=== PATIENT | male | born 1955 | race Caucasian/White ===

== ENCOUNTER 2016-12-01 13:23 | Emergency (ER) | payer SELFPAY ==
[~2016-12-01] VITALS: Ht 172.7 cm; Wt 84.0 kg
[~2016-12-01 13:23] MED LIST: GABA100C4 PO; MELO7.5T PO; METH750T2 PO; PRAV40TA PO; PROT40TA PO; ULTR50TA PO; VIAG50TA PO
[2016-12-01 13:24] VITALS: BP 155/90; PULSE 92; RESP 20; TEMP 98.7; O2SAT 96
--- NOTE | 2016-12-01 14:25 | PD ---
Physical Exam Date Seen by Provider: December 01, 2016 Time Seen by Provider: 14:22 Narrative 61 y/o male with complaints of right lower leg and foot pain and swelling worsening over the past 4 days. No fever or other symptoms of cellulitis. Hx. Varicose Veins. Not Diabetic. pain 8/10. V/S Stable Patient awaiting Bed Placement. Data Data Last Documented VS Vital Signs Date Time Temp Pulse Resp B/P Pulse Ox O2 Delivery O2 Flow Rate FiO2 12/01/16 13:24 98.7 92 20 155/90 96 Room Air [facility] Medical Record Reviewed: Yes Supervised Visit with LIONEL: Yes Condition: Stable Ramy Arnold December 01, 2016 14:25
--- NOTE | 2016-12-01 19:27 | PD ---
HPI Chief Complaint: Pain: Acute or Chronic Time Seen by Provider: 19:26 Travel History International Travel<30 days: No Contact w/Intl Traveler<30days: No Traveled to known affect area: No PFSH Past Medical History Arthritis: No Asthma: No Autoimmune Disease: No Blood Disorders: No Anxiety: No Depression: No Heart Rhythm Problems: No Cancer: No Cardiovascular Problems: No High Cholesterol: No Chemotherapy: No Chest Pain: No Congestive Heart Failure: No COPD: No Cerebrovascular Accident: No Diabetes: No Diminished Hearing: No Endocrine: No GERD: No Glaucoma: No Genitourinary: No Headaches: No Hepatitis: No Hiatal Hernia: No Hypertension: No Immune Disorder: No Inguinal Hernia: Yes Kidney Stones: No Musculoskeletal: Yes Neurologic: No Psychiatric: No Reproductive: No Respiratory: Yes Migraines: No Myocardial Infarction: No Radiation Therapy: No Renal Failure: No Seizures: No Sickle Cell Disease: No Thyroid Disease: No Ulcer: Yes (SINCE 19YRS OF AGE) Past Surgical History Abdominal Surgery: No AICD: No Appendectomy: No Arteriovenous Shunt: No Cardiac Surgery: No Cholecystectomy: No Ear Surgery: No Endocrine Surgery: No Eye Surgery: No Genitourinary Surgery: No Gynecologic Surgery: No Insulin Pump: No Joint Replacement: No Oral Surgery: No Pacemaker: No Thoracic Surgery: No Other Surgery: Yes Social History Alcohol Use: No Tobacco Use: No Substance Use: No Allergies-Medications (Allergen,Severity, Reaction): Coded Allergies: Ibuprofen (Verified Allergy, Unknown, ulcer problems, 12/01/16) Pt states that Ibuprofen "messes" up his ulcer. Reported Meds & Prescriptions Reported Meds & Active Scripts Active Robaxin (Methocarbamol) 750 Mg Tab 750 Mg PO QID Ultram (Tramadol HCl) 50 Mg Tab 50-100 Mg PO Q8 PRN Protonix (Pantoprazole Sodium) 40 Mg Tab 40 Mg PO DAILY Gabapentin 100 Mg Cap 200 Mg PO BID Viagra (Sildenafil Citrate) 50 Mg Tab 50 Mg PO DAILY PRN Mobic (Meloxicam) 7.5 Mg Tab 7.5 Mg PO DAILY Pravachol 40 Mg Tab 40 Mg PO HS Data Data Last Documented VS Vital Signs Date Time Temp Pulse Resp B/P Pulse Ox O2 Delivery O2 Flow Rate FiO2 12/01/16 13:24 98.7 92 20 155/90 96 Room Air MDM Condition: Stable Micki Casanova MD December 01, 2016 19:26
[2016-12-02] MEDS ORDERED: CLIN1CAP5 PO (11:23)
== END 2016-12-01 19:25 | disposition left against medical advice (07) ==
LOC: NEPD 13:23
DX: M79.604 Pain in right leg (principal)
CPT/HCPCS: 99282

== ENCOUNTER 2016-12-02 08:08 | Emergency (ER) | payer SELFPAY ==
[~2016-12-02] VITALS: Ht 172.7 cm; Wt 85.0 kg
[2016-12-02 08:13] VITALS: BP 147/90; PULSE 91; RESP 18; TEMP 98.7; O2SAT 95
--- NOTE | 2016-12-02 09:19 | PD ---
HPI Chief Complaint: Edema Time Seen by Provider: 09:06 Travel History International Travel<30 days: No Contact w/Intl Traveler<30days: No Traveled to known affect area: No History of Present Illness HPI 61-year-old male complains of right leg pain and swelling and redness. Patient states that he started having redness swelling tenderness about 5 days ago. Patient states that swelling got better since yesterday however the redness and the pain persists on the right lower leg. Patient denies any injury. Patient denies any chest pain or shortness of breath. Patient denies history of DVT or PE. PFSH Past Medical History Arthritis: No Asthma: No Autoimmune Disease: No Blood Disorders: No Anxiety: No Depression: No Heart Rhythm Problems: No Cancer: No Cardiovascular Problems: No High Cholesterol: No Chemotherapy: No Chest Pain: No Congestive Heart Failure: No COPD: No Cerebrovascular Accident: No Diabetes: No Diminished Hearing: No Endocrine: No GERD: No Glaucoma: No Genitourinary: No Headaches: No Hepatitis: No Hiatal Hernia: No Hypertension: No Immune Disorder: No Inguinal Hernia: Yes Kidney Stones: No Musculoskeletal: Yes Neurologic: No Psychiatric: No Reproductive: No Respiratory: Yes Migraines: No Myocardial Infarction: No Radiation Therapy: No Renal Failure: No Seizures: No Sickle Cell Disease: No Thyroid Disease: No Ulcer: Yes (SINCE 19YRS OF AGE) Past Surgical History Abdominal Surgery: Yes (HERNIA REPAIR ) AICD: No Appendectomy: No Arteriovenous Shunt: No Cardiac Surgery: No Cholecystectomy: No Ear Surgery: No Endocrine Surgery: No Eye Surgery: No Genitourinary Surgery: No Gynecologic Surgery: No Insulin Pump: No Joint Replacement: No Oral Surgery: No Pacemaker: No Thoracic Surgery: No Other Surgery: Yes Social History Alcohol Use: No Tobacco Use: No Substance Use: No Allergies-Medications (Allergen,Severity, Reaction): Coded Allergies: Ibuprofen (Verified Allergy, Unknown, ulcer problems, 12/02/16) Pt states that Ibuprofen "messes" up his ulcer. Reported Meds & Prescriptions Reported Meds & Active Scripts Active Review of Systems General / Constitutional: No: Fever Eyes: No: Visual changes HENT: No: Headaches Cardiovascular: No: Chest Pain or Discomfort Respiratory: No: Shortness of Breath Gastrointestinal: No: Abdominal Pain Genitourinary: No: Dysuria Musculoskeletal: No: Pain Skin: No Rash Neurologic: No: Weakness Psychiatric: No: Depression Endocrine: No: Polydipsia Hematologic/Lymphatic: No: Easy Bruising Physical Exam Narrative GENERAL: Well-nourished, well-developed patient. SKIN: Focused skin assessment warm/dry. HEAD: Normocephalic. EYES: No scleral icterus. No injection or drainage. NECK: Supple, trachea midline. No JVD or lymphadenopathy. CARDIOVASCULAR: Regular rate and rhythm without murmurs, gallops, or rubs. RESPIRATORY: Breath sounds equal bilaterally. No accessory muscle use. GASTROINTESTINAL: Abdomen soft, non-tender, nondistended. MUSCULOSKELETAL: No cyanosis, or edema. BACK: Nontender without obvious deformity. No CVA tenderness. Patient has an area of redness tenderness pretibial area of the right lower leg. No induration noted. No calf tenderness. Negative Homans sign. Data Data Last Documented VS Vital Signs Date Time Temp Pulse Resp B/P Pulse Ox O2 Delivery O2 Flow Rate FiO2 12/02/16 08:13 98.7 91 18 147/90 95 Room Air Orders Complete Blood Count With Diff (12/02/16 09:07) Basic Metabolic Panel (Bmp) (12/02/16 09:07) Prothrombin Time / Inr (Pt) (12/02/16 09:07) Basic Metabolic Panel (Bmp) (12/02/16 09:13) Act Partial Throm Time (Ptt) (12/02/16 09:13) Iv Access Insert/Monitor (12/02/16 09:13) Us Leg Venous Doppler (12/02/16 09:15) Labs Laboratory Tests Test 12/02/16 09:00 White Blood Count 6.7 TH/MM3 Red Blood Count 4.42 MIL/MM3 Hemoglobin 14.0 GM/DL Hematocrit 42.4 % Mean Corpuscular Volume 95.8 FL Mean Corpuscular Hemoglobin 31.7 PG Mean Corpuscular Hemoglobin 33.1 % Concent Red Cell Distribution Width 13.4 % Platelet Count 239 TH/MM3 Mean Platelet Volume 8.1 FL Neutrophils (%) (Auto) 59.0 % Lymphocytes (%) (Auto) 24.4 % Monocytes (%) (Auto) 9.5 % Eosinophils (%) (Auto) 6.0 % Basophils (%) (Auto) 1.1 % Neutrophils # (Auto) 4.0 TH/MM3 Lymphocytes # (Auto) 1.6 TH/MM3 Monocytes # (Auto) 0.6 TH/MM3 Eosinophils # (Auto) 0.4 TH/MM3 Basophils # (Auto) 0.1 TH/MM3 CBC Comment DIFF FINAL Differential Comment Prothrombin Time 12.0 SEC Prothromb Time International 1.1 RATIO Ratio Sodium Level 138 MEQ/L Potassium Level 4.4 MEQ/L Chloride Level 102 MEQ/L Carbon Dioxide Level 30.1 MEQ/L Anion Gap 6 MEQ/L Blood Urea Nitrogen 13 MG/DL Creatinine 1.08 MG/DL Estimat Glomerular Filtration 70 ML/MIN Rate Random Glucose 102 MG/DL Calcium Level 8.7 MG/DL [facility] Medical Decision Making Medical Screen Exam Complete: Yes Emergency Medical Condition: Yes Interpretation(s) Last Impressions Lower Extremity Ultrasound 12/02/16 0915 Signed Impressions: Service Date/Time: Friday, December 02, 2016 09:47 - CONCLUSION: No deep venous thrombosis in the right leg. Chandler Franklin MD 11:20 AM. CBC within normal limit. BMP within normal limit. Differential Diagnosis Differential diagnosis including superficial phlebitis, cellulitis, DVT. Narrative Course 61-year-old male with redness and tenderness pretibial area right lower leg. Diagnosis Primary Impression: Cellulitis Qualified Code: L03.115 - Cellulitis of right lower extremity Patient Instructions: General Instructions Additional Instructions: Take medications as directed. Follow-up with personal physician. Return if persistent problem or worse. Med/Other Pt SpecificInfo: Prescription(s) given Scripts Clindamycin 150 Mg Cap2 Tab PO Q6H #80 CAP Prov:Canelo Singleton MD 12/02/16 Disposition: 01 DISCHARGE HOME Condition: Stable Canelo Singleton MD December 02, 2016 09:19
[2016-12-02 09:22] LABS: BASOPHIL # 0.1 TH/MM3 (0-0.2); BASOPHIL % 1.1 % (0.0-2.0); EOSINOPHIL # 0.4 TH/MM3 (0-0.4); HEMATOCRIT 42.4 % (39.0-51.0); HEMO FLAGS DIFF FINAL; LYMPH % 24.4 % (9.0-44.0); LYMPHOCYTE # 1.6 TH/MM3 (1.0-4.8); MEAN CELL VOLUME 95.8 FL (80.0-100.0); MEAN CORPUSCULAR HEMOGLOBIN 31.7 PG (27.0-34.0); MEAN CORPUSCULAR HGB CONC 33.1 % (32.0-36.0); MONO % 9.5 % (0.0-8.0); PLATELET COUNT 239 TH/MM3 (150-450); RED BLOOD COUNT 4.42 MIL/MM3 (4.50-5.90); RED CELL DISTRIBUTION WIDTH 13.4 % (11.6-17.2); WHITE BLOOD COUNT 6.7 TH/MM3 (4.0-11.0)
[2016-12-02 09:31] LABS: INTERNATIONAL NORMALIZED RATIO 1.1 RATIO
[2016-12-02 09:40] LABS: BICARBONATE 30.1 MEQ/L (21.0-32.0); POTASSIUM 4.4 MEQ/L (3.5-5.1)
--- NOTE | 2016-12-02 10:11 | RADRPT ---
EXAM DATE/TIME: 12/02/2016 09:47 [place] COMPARISON: No previous studies available for comparison. INDICATIONS : Right leg pain. MEDICAL HISTORY : Ulcers. Sleep apnea. TB. Inguinal hernia. SURGICAL HISTORY : Inguinal hernia repair. ENCOUNTER: Initial ACUITY: 2 months PAIN SCORE: 3/10 LOCATION: Right leg. TECHNIQUE: Venous ultrasound of the leg was performed from the inguinal ligament to the proximal calf. Real-barbie e, color Doppler and spectral tracing, compression and augmentation techniques were used. FINDINGS: There is normal compressibility of the deep venous system from the inguinal region to the proximal ca lf. No echogenic clot is seen in the lumen of the common femoral, femoral, popliteal, and posterior tibial veins. There is a normal response of the venous system to proximal and distal augmentation an d respiration. CONCLUSION: No deep venous thrombosis in the right leg. Chandler Franklin MD on December 02, 2016 at 10:09 Board Certified Radiologist. This report was verified electronically.
[2016-12-02] MEDS ORDERED: CLIN1CAP5 PO (11:23)
[2016-12-02 13:12] LABS: APTT (PATIENT) 27.9 SEC (24.3-30.1)
== END 2016-12-02 11:35 | disposition home or self-care (01) ==
LOC: NEPC 08:08
DX: L03.115 Cellulitis of right lower limb (principal)
CPT/HCPCS: 80048; 85025; 85610; 85730; 93971